=== PATIENT | female | born 1965 | race Two or more races ===

== ENCOUNTER → 2023-04-20 11:57 | Outpatient (REF) | payer BC, SELFPAY | LOC: HWRAD 11:57 | PROVIDERS: ATTENDING PHYSICIAN Nurse Practitioner | DX: J40 Bronchitis, not specified as acute or chronic (principal) | CPT/HCPCS: 71046 ==

== ENCOUNTER → 2023-12-29 15:09 | Outpatient (REF) | payer BC, SELFPAY | LOC: HWRAD 15:09 | DX: M25.552 Pain in left hip (principal) | CPT/HCPCS: 73502 ==